=== PATIENT | female | born 1965 | race African-American/Black ===

== ENCOUNTER 2016-11-05 16:16 | Inpatient (IN) | payer OTHER ==
--- NOTE | ~2016-11-05 | CR72 ---
[facility] A Service of [facility] & [facility] RADIOLOGY TEXT RESULTS PATIENT: ORALIA CARDENAS LOCATION: SED : 67 UNIT #: [id number] AGE: [address]: Layo Villarreal MD SEX: F ORDER DR: [id number] [address] [address] [id number] E MR#: [id number] Acc #: [id number] NAME: ORALIA CARDENAS : 1965 SEX: F STUDY DATE/TIME: 11/05/2016 16:09 UNIT: SED ROOM: STUDY DESCRIPTION: CR Chest Single View Portable Attending Physician: Layo Villarreal M.D. Ordering Physician: Layo Villarreal M.D. Primary Care Physician: No Primary Care Physician MEDICAL IMAGING REPORT This report is preliminary unless electronic signature is present. EXAM Portable chest. HISTORY Left-sided numbness times 2 hours. Increased blood pressure. FINDINGS Portable view the chest demonstrates cardiomegaly without failure. No infiltrates or effusions. Mediastinum, great vessels, and bony thorax are unremarkable. Dictated by... Fritz Vieyra M.D. THIS IS AN ELECTRONICALLY VERIFIED REPORT Fritz Vieyra M.D. at 11/05/2016 5:23 PM Sarah TD: 11/05/2016 17:19 JOB #: [id number] MEDICAL IMAGING REPORT Page 1 of 1
--- NOTE | ~2016-11-05 | EKG ---
PATIENT: ORALIA CARDENAS UNIT #: [id number] Ventricular Rate: 82 BPM Atrial Rate: 82 BPM P-R Interval: 184 ms QRS Duration: 88 ms Q-T Interval: 372 ms QTC Calculation(Bezet): 434 ms P Hood: 57 degrees Calculated R Hood: -16 degrees Calculated T Hood: -63 degrees Diagnosis Line: Normal sinus rhythm Diagnosis Line: T wave abnormality, consider anterolateral Diagnosis Line: ischemia T wave abnormality, consider inferior Diagnosis Line: ischemia Diagnosis Line: Abnormal ECG Diagnosis Line: No previous ECGs available Diagnosis Line: Confirmed by XIAO GIRON MD ([id number]) on 11/09/2016 Diagnosis Line: 3:31:38 PM INTERPRETING MD: MACK BUTT
--- NOTE | ~2016-11-05 | CT72 ---
[facility] A Service [facility] RADIOLOGY TEXT RESULTS PATIENT: ORALIA CARDENAS LOCATION: SED : 67 UNIT #: [id number] AGE: [address]: Layo Villarreal MD SEX: F ORDER DR: [id number] [place] [address] [id number] E MR#: [id number] Acc #: [id number] NAME: ORALIA CARDENAS : 1965 SEX: F STUDY DATE/TIME: 11/05/2016 15:45 UNIT: SED ROOM: STUDY DESCRIPTION: CT Head Wo Contrast Stroke Attending Physician: Layo Villarreal M.D. Ordering Physician: Layo Villarreal M.D. Primary Care Physician: No Primary Care Physician MEDICAL IMAGING REPORT This report is preliminary unless electronic signature is present. EXAM Head CT, 11/05. INDICATION Left-side numbness for the last 2 hours. Hypertension. History of diabetes. TECHNIQUE Axial noncontrast images were obtained from the skull base to the vertex. This CT exam was performed with one or more of the following radiation dose reduction techniques: automatic exposure control, adjustment of mA and/or kV according to patient size, and iterative reconstruction. FINDINGS Ventricular size and configuration are normal. There is no evidence of acute infarct or hemorrhage. There are no extraaxial fluid collections. No mass lesion or mass effect is seen. There are no skull fractures. IMPRESSION Normal noncontrast head CT. Dictated by... Collins Nelson Jr., M.D. THIS IS AN ELECTRONICALLY VERIFIED REPORT Collins Nelson Jr., M.D. at 11/05/2016 11:03 PM IVETT/andres TD: 11/05/2016 17:02 [facility] A Service [facility] RADIOLOGY TEXT RESULTS PATIENT: ORALIA CARDENAS LOCATION: SED : 67 UNIT #: [id number] AGE: [address]: Layo Villarreal MD SEX: F ORDER DR: ALESSANDRA #: [id number] MEDICAL IMAGING REPORT Page 1 of 1
--- NOTE | ~2016-11-05 | CT18 ---
[facility] A Service of [facility] RADIOLOGY TEXT RESULTS PATIENT: ORALIA CARDENAS LOCATION: SED : 67 UNIT #: [id number] AGE: [address]: Layo Villarreal MD SEX: F ORDER DR: [id number] [place] [address] [id number] E MR#: [id number] Acc #: [id number] NAME: ORALIA CARDENAS : 1965 SEX: F STUDY DATE/TIME: 11/05/2016 15:57 UNIT: SED ROOM: STUDY DESCRIPTION: CT Angio Head Stroke Attending Physician: Layo Villarreal M.D. Ordering Physician: Layo Villarreal M.D. Primary Care Physician: No Primary Care Physician MEDICAL IMAGING REPORT This report is preliminary unless electronic signature is present. EXAM CTA head 11/05/2016 Result text under order number ending [id number] CTA head and neck 11/05/2016. Please see this order for result text. Dictated by... Royal Caballero M.D. THIS IS AN ELECTRONICALLY VERIFIED REPORT Royal Caballero M.D. at 11/10/2016 10:39 AM JACINTA/veronica TD: 11/05/2016 17:45 JOB #: [id number] MEDICAL IMAGING REPORT Page 1 of 1
--- NOTE | ~2016-11-05 | CT24 ---
[facility] A Service of [facility] RADIOLOGY TEXT RESULTS PATIENT: ORALIA CARDENAS LOCATION: SED : 67 UNIT #: [id number] AGE: [address]: Layo Villarreal MD SEX: F ORDER DR: [id number] [place] [id number] E MR#: [id number] Acc #: [id number] NAME: ORALIA CARDENAS : 1965 SEX: F STUDY DATE/TIME: 11/05/2016 15:57 UNIT: SED ROOM: STUDY DESCRIPTION: CT Angio Neck Stroke Attending Physician: Layo Villarreal M.D. Ordering Physician: Layo Villarreal M.D. Primary Care Physician: No Primary Care Physician MEDICAL IMAGING REPORT This report is preliminary unless electronic signature is present. EXAM Head and neck CT angiogram with contrast 11/05/2016 HISTORY Left side numbness for 2 hours. PROCEDURE Axial contrast enhanced head and neck CT angiogram with [address] exam was performed with one or more of the following radiation dose reduction techniques: automatic exposure control, adjustment of mA and/or kV according to patient size, and iterative reconstruction. FINDINGS There is no proximal great vessel stenosis. There is right vertebral dominance. There is slight plaque at the right carotid bifurcation but 0% stenosis in both internal carotids by NASCET criteria. Intracranially the basilar artery is patent. Both internal carotid arteries are patent. The anterior communicator is patent. Neither posterior communicator is convincingly demonstrated. There is symmetric vascularity in the anterior, middle and posterior cerebral distributions. There is normal enhancement in the dural venous sinuses and there is no intracranial mass or abnormal enhancement. The cervical soft tissues are unremarkable. The lung apices are normal. The bony structures are normal. IMPRESSION Normal head and neck CT angiogram. No intra or extracranial aneurysm or STS. [facility] A Service [facility] RADIOLOGY TEXT RESULTS PATIENT: ORALIA CARDENAS LOCATION: SED : 67 UNIT #: [id number] AGE: [address]: Layo Villarreal MD SEX: F ORDER DR: stenosis. Symmetric intracranial vascularity. Dictated by... Royal Caballero M.D. THIS IS AN ELECTRONICALLY VERIFIED REPORT Royal Caballero M.D. at 11/10/2016 10:39 AM JACINTA/veronica TD: 11/05/2016 17:42 JOB #: [id number] MEDICAL IMAGING REPORT Page 1 of 1
[2016-11-05 15:55] LABS: POC - CREATININE 1.5 mg/dL (0.44-1.03)
[2016-11-05 16:00] LABS: BASOPHIL# 0.1 X10e3 (0-0.3); BASOPHIL% 1.2 % (0-2.5); EOSINOPHIL# 0.1 X10e3 (0-0.7); EOSINOPHIL% 1.9 % (0.0-7.0); HEMATOCRIT 39.3 % (35.0-45.0); HEMOGLOBIN 13.3 gm/dL (12.0-16.0); LYMPHOCYTE# 2.1 X10e3 (1.0-3.5); LYMPHOCYTE% 38.4 % (17.0-45.0); MEAN CELL VOLUME 77.6 FL (83-96); MEAN CORPUSCULAR HEMOGLOBIN 26.3 PG (28-34); MEAN CORPUSCULAR HGB CONC 33.9 g/dL (30-36); MEAN PLATELET VOLUME 10.4 FL (6.5-11.5); MONOCYTE# 0.5 X10e3 (0-1.0); MONOCYTE% 8.9 % (3.0-12.0); NEUTROPHIL# 2.7 X10e3 (1.5-7.1); NEUTROPHIL% 49.6 % (40-75); PLATELET COUNT 199 X10e3 (140-420); RED BLOOD COUNT 5.06 X10e (3.90-5.30); RED CELL DISTRIBUTION WIDTH 16.9 % (11.0-15.5); WHITE BLOOD COUNT 5.5 X10e3 (4.0-10.5)
[2016-11-05 16:05] LABS: DIFF IND NO
[2016-11-05 16:06] LABS: POC - CKMB 1.1 ng/mL (0.0-7.9); POC - TROPONIN <0.05 ng/mL (<=0.05)
[2016-11-05 16:10] LABS: INR 1.1; PROTHROMBIN TIME (PATIENT) 12.8 SECONDS (9.5-12.4)
[2016-11-05 16:17] LABS: PARTIAL THROMBOPLASTIN TIME 30.8 SECONDS (25.6-38.1)
[2016-11-05 16:19] LABS: BILIRUBIN,TOTAL 0.7 mg/dL (0.2-2.0); BUN/CREATININE RATIO 9.09; CALCIUM SERUM 8.8 mg/dL (8.4-10.2); CREATININE SERUM 1.1 mg/dL (0.6-1.4); GLOM FILT RATE Estimated 67.8 mL/min (>60); POTASSIUM 3.4 mmol/L (3.5-5.1); PROTEIN TOTAL SERUM 7.3 g/dL (6.0-8.3)
[2016-11-09] MEDS ORDERED: NORVASC10 MG PO (11:11)
[2016-11-09] MEDS ORDERED: ACETAMINOPHEN650 M4 PO (11:11)
[2016-11-09] MEDS ORDERED: HYDROCHLOROTH12.5 MG PO (11:12)
[2016-11-09] MEDS ORDERED: LIPITOR40 MG PO (11:14)
[2016-11-09] MEDS ORDERED: LISINOPRIL20 MG PO (11:14)
[2016-11-09] MEDS ORDERED: ASPIRIN ENTERI325 M1 PO (11:15)
[2016-11-09] MEDS ORDERED: ALDACTONE25 MG PO (11:16)
== END 2016-11-09 14:46 | disposition home or self-care (01) | DRG 64 ==
LOC: SED 16:16 → C3A PCU 21:40
PROVIDERS: Emergency Medicine
PROC: B24BYZZ Ultrasonography of Heart with Aorta using Other Contrast (ICD-10-PCS; principal; 2016-11-06)
DX: I63.8 Other cerebral infarction (principal); G93.6 Cerebral edema; G81.94 Hemiplegia, unspecified affecting left nondominant side; E11.8 Type 2 diabetes mellitus with unspecified complications; I16.1 Hypertensive emergency; I16.0 Hypertensive urgency; Z91.14 Patient's other noncompliance with medication regimen; E78.5 Hyperlipidemia, unspecified; R94.31 Abnormal electrocardiogram [ECG] [EKG]; R53.81 Other malaise; E87.6 Hypokalemia; T65.891A Toxic effect of other specified substances, accidental (unintentional), initial encounter; J68.3 Other acute and subacute respiratory conditions due to chemicals, gases, fumes and vapors
CPT/HCPCS: 70450; 70496; 70498; 70551; 71010; 80048; 80053; 80061; 81003; 82550; 82553; 82565; 82607; 82746; 82947; 83036; 83735; 84443; 84484; 85025; 85610; 85730; 86140; 93005; 93306; 94760; 94762; 96361; 96365; 96366; 96375; 99291; J0360; J2405; Q9967